=== PATIENT | female | born 1940 | race Caucasian/White ===

== ENCOUNTER 2021-06-17 18:12 | Emergency (ER) | payer OTHER ==
[~2021-06-17] VITALS: Ht 147.3 cm; Wt 49.9 kg
[2021-06-17] MEDS ORDERED: ISOSORBIDE DINI30 MG PO (18:30)
== END 2021-06-18 00:12 | disposition home or self-care (01) ==
LOC: ER 18:12
DX: K59.00 Constipation, unspecified (principal); Z88.6 Allergy status to analgesic agent; Z88.0 Allergy status to penicillin; Z91.013 Allergy to seafood